=== PATIENT | male | born 1995 | race Caucasian/White ===

== ENCOUNTER 2020-08-27 14:02 | Emergency (ER) | payer OTHER ==
[2020-08-27 14:36] LABS: BASO # 0.02 (0.02-0.10); EOS # 0.08 (0.04-0.40); EOS % 0.8 % (0.0-4.0); HEMATOCRIT 44.8 % (42.0-52.0); HEMOGLOBIN 15.4 g/dL (13.5-18.0); LYMPH# 0.84 (1.50-4.00); MEAN CELL VOLUME 89 fl (78-100); MEAN CORPUSCULAR HEMOGLOBIN 31 pg (27-31); MEAN CORPUSCULAR HGB CONC 34 g/dL (33-37); MEAN PLATELET VOLUME 9.4 fl (7.4-10.4); MONO # 0.59 (0.20-0.80); NEU # 8.68 (1.40-6.50); PLATELET COUNT 250 K/mm3 (130-400); RED BLOOD COUNT 5.01 M/mm3 (4.20-5.60); RED CELL DISTRIBUTION WIDTH 12.2 % (11.5-14.5); WHITE BLOOD COUNT 10.2 K/mm3 (4.8-10.8)
[2020-08-27 14:47] LABS: ALBUMIN 4.5 g/dL (3.5-5.0); POTASSIUM 3.5 mmol/L (3.5-5.1); SODIUM 140 mmol/L (136-145)
[2020-08-27 14:48] LABS: CALCIUM 9.5 mg/dL (8.3-10.5)
[2020-08-27 14:50] LABS: GLUCOSE 107 mg/dL (75-110); TOTAL PROTEIN 7.3 g/dL (6.4-8.3)
[2020-08-27 14:51] LABS: CARBON DIOXIDE 24 mmol/L (22-29); TOTAL BILIRUBIN 0.6 mg/dL (0.2-1.2)
[2020-08-27 14:55] LABS: AST-SGOT 15 U/L (5-34)
[2020-08-27 14:57] LABS: ALT/SGPT 28 U/L (0-55)
[2020-08-27 15:24] LABS: ACETAMINOPHEN < 1 ug/mL; ALCOHOL IN-HOUSE < 10 mg/dL (<10)
[2020-08-27 15:25] LABS: TROPONIN-I < 0.03 ng/mL (<0.030)
[2020-08-27 15:40] VITALS: BP 134/83
[2020-08-27 15:45] LABS: URINE APPEARANCE CLOUDY; URINE BLOOD TRACE (NEGATIVE); URINE COLOR YELLOW; URINE GLUCOSE NEGATIVE (NEGATIVE); URINE KETONE NEGATIVE (NEGATIVE); URINE NITRATE NEGATIVE (NEGATIVE); URINE PROTEIN(semi-quant) TRACE mg/dL (NEGATIVE); URINE UROBILINOGEN NORMAL (NORMAL)
[2020-08-27 15:46] LABS: URINE BILIRUBIN 1+ (NEGATIVE); URINE LEUKOCYTE ESTERASE TRACE (NEGATIVE); URINE MUCUS PRESENT (NOT PRESENT)
== END 2020-08-27 15:38 ==
LOC: ED 14:02
PROVIDERS: Nurse Practitioner
DX: F14.10 Cocaine abuse, uncomplicated (principal); F22 Delusional disorders; Z88.0 Allergy status to penicillin